=== PATIENT | male | born 1960 | race Caucasian/White ===

== ENCOUNTER 2016-06-12 10:48 | Outpatient (CLI) | payer BC | END 2016-06-12 10:49 | disposition home or self-care (01) | DX: E11.9 Type 2 diabetes mellitus without complications (principal); E78.5 Hyperlipidemia, unspecified; I10 Essential (primary) hypertension; R74.8 Abnormal levels of other serum enzymes ==

== ENCOUNTER 2016-06-19 08:04 | Outpatient (CLI) | payer BC | END 2016-06-19 08:05 | disposition home or self-care (01) | DX: R74.8 Abnormal levels of other serum enzymes (principal) ==

== ENCOUNTER 2016-07-17 15:29 | Outpatient (CLI) | payer BC | END 2016-07-17 15:30 | disposition home or self-care (01) | DX: E78.5 Hyperlipidemia, unspecified (principal); R74.8 Abnormal levels of other serum enzymes ==

== ENCOUNTER 2017-03-19 07:50 | Outpatient (CLI) | payer BC ==
[2017-03-19 10:44] LABS: ALBUMIN/GLOBULIN RATIO 1.4 (1.0-2.2); BILIRUBIN,DIRECT 0.2 mg/dL (0.1-0.5); BILIRUBIN,TOTAL 1.7 mg/dL (0.2-1.0); BUN - BLOOD UREA NITROGEN 18 mg/dL (6-20); CALCIUM 9.4 mg/dL (8.5-10.3); CARBON DIOXIDE - CO2 32 mmol/L (21-32); CHLORIDE 96 mmol/L (101-111); CHOL/HDL RATIO 3.7 (<5.0); CHOLESTEROL 118 mg/dL; CREATININE 0.8 mg/dL (0.6-1.2); GFR - MDRD 100 (>89); GLUCOSE 114 mg/dL (70-100); HDL CHOLESTEROL 32 mg/dL; POTASSIUM 3.7 mmol/L (3.5-5.0); SODIUM 136 mmol/L (135-145); TOTAL PROTEIN 7.8 g/dL (6.7-8.2); TRIGLYCERIDES 110 mg/dL; VLDL CHOLESTEROL 22 mg/dL
[2017-03-19 11:12] LABS: HEMOGLOBIN A1C 0.53 g/dL
== END 2017-03-19 07:51 | disposition home or self-care (01) ==
LOC: LAB.F 07:50
PROVIDERS: ATTEND Family Medicine
DX: E11.9 Type 2 diabetes mellitus without complications (principal); R74.8 Abnormal levels of other serum enzymes; I10 Essential (primary) hypertension; E78.5 Hyperlipidemia, unspecified
CPT/HCPCS: 36415; 80053; 80061; 82043; 82248; 83036

== ENCOUNTER 2017-06-18 08:00 | Outpatient (CLI) | payer BC ==
[2017-06-18 11:40] LABS: HB2 TOTAL 18.5 g/dL; HEMOGLOBIN A1C 0.69 g/dL; HEMOGLOBIN A1C % 5.6 % (4.6-6.2)
== END 2017-06-18 08:01 | disposition home or self-care (01) ==
LOC: LAB.F 08:00
PROVIDERS: ATTEND Family Medicine
DX: E11.9 Type 2 diabetes mellitus without complications (principal); I10 Essential (primary) hypertension; E78.5 Hyperlipidemia, unspecified
CPT/HCPCS: 36415; 83036

== ENCOUNTER 2017-12-23 08:51 | Outpatient (CLI) | payer BC ==
[2017-12-23 17:43] LABS: BASOPHILS # (AUTO) 0.1 10^3/uL (0.0-0.1); BASOPHILS % (AUTO) 0.8 %; EOSINOPHILS # (AUTO) 0.2 10^3/uL (0.0-0.7); EOSINOPHILS % (AUTO) 2.6 %; HGB - HEMOGLOBIN 17.2 g/dL (14.0-18.0); LYMPHOCYTES # (AUTO) 2.6 10^3/uL (1.5-3.5); LYMPHOCYTES % (AUTO) 35.1 %; MEAN CORPUSCULAR HEMOGLOBIN 33.3 pg (27.0-31.0); MEAN CORPUSCULAR HGB CONC 35.8 g/dL (32.0-36.0); MEAN PLATELET VOLUME 8.4 fL (7.4-11.4); MONOCYTES # (AUTO) 0.8 10^3/uL (0.0-1.0); MONOCYTES % (AUTO) 10.8 %; NEUTROPHILS # (AUTO) 3.7 10^3/uL (1.5-6.6); NEUTROPHILS % (AUTO) 50.7 %; PLT - PLATELET COUNT 223 10^3/uL (130-450); RED BLOOD COUNT 5.18 10^6/uL (4.70-6.10); RED CELL DISTRIBUTION WIDTH 13.5 % (12.0-15.0); WHITE BLOOD COUNT 7.3 x10^3/uL (4.8-10.8)
[2017-12-23 18:28] LABS: ALBUMIN 4.9 g/dL (3.2-5.5); ALBUMIN/GLOBULIN RATIO 1.4 (1.0-2.2); ALKALINE PHOSPHATASE 61 IU/L (42-121); ALT ALANINE AMINOTRANSFERASE 42 IU/L (10-60); AST ASPARTATE AMINOTRANSFERASE 28 IU/L (10-42); BILIRUBIN,TOTAL 2.2 mg/dL (0.2-1.0); BUN - BLOOD UREA NITROGEN 16 mg/dL (6-20); CALCIUM 9.7 mg/dL (8.5-10.3); CARBON DIOXIDE - CO2 27 mmol/L (21-32); CHLORIDE 94 mmol/L (101-111); CHOL/HDL RATIO 4.4 (<5.0); CHOLESTEROL 144 mg/dL; CREATININE 0.8 mg/dL (0.6-1.2); GFR - MDRD 99 (>89); GLUCOSE 123 mg/dL (70-100); HDL CHOLESTEROL 33 mg/dL; LDL CHOLESTEROL,CALCULATED 91 mg/dL; LDL/HDL RATIO 2.8 (<3.6); SODIUM 132 mmol/L (135-145); TOTAL PROTEIN 8.4 g/dL (6.7-8.2); VLDL CHOLESTEROL 20 mg/dL
== END 2017-12-23 08:52 | disposition home or self-care (01) ==
LOC: LAB.F 08:51
PROVIDERS: ATTEND Nurse Practitioner Family
DX: Z12.5 Encounter for screening for malignant neoplasm of prostate (principal); E11.9 Type 2 diabetes mellitus without complications; I10 Essential (primary) hypertension; E78.5 Hyperlipidemia, unspecified
CPT/HCPCS: 36415; 80053; 80061; 83721; 84153; 84443; 85025

== ENCOUNTER 2017-12-29 13:54 | Outpatient (CLI) | payer BC ==
[2017-12-29 18:35] LABS: HB2 TOTAL 17.7 g/dL; HEMOGLOBIN A1C 0.54 g/dL; HEMOGLOBIN A1C % 4.9 % (4.6-6.2)
== END 2017-12-29 13:55 | disposition home or self-care (01) ==
LOC: LAB.F 13:54
PROVIDERS: ATTEND Nurse Practitioner Family
DX: E11.9 Type 2 diabetes mellitus without complications (principal)
CPT/HCPCS: 36415; 83036

== ENCOUNTER 2018-08-15 10:02 | Outpatient (CLI) | payer BC ==
[2018-08-15 20:01] LABS: HB2 TOTAL 18.7 g/dL; HEMOGLOBIN A1C 0.56 g/dL; HEMOGLOBIN A1C % 4.9 % (4.6-6.2)
== END 2018-08-15 10:03 | disposition home or self-care (01) ==
LOC: LAB.F 10:02
PROVIDERS: ATTEND Nurse Practitioner Family
DX: E11.9 Type 2 diabetes mellitus without complications (principal)
CPT/HCPCS: 36415; 83036

== ENCOUNTER 2020-04-05 09:17 | Outpatient (CLI) | payer BC ==
[2020-04-05 14:56] LABS: BASOPHILS # (AUTO) 0.1 10^3/uL (0.0-0.1); BASOPHILS % (AUTO) 1.2 %; EOSINOPHILS # (AUTO) 0.5 10^3/uL (0.0-0.7); EOSINOPHILS % (AUTO) 5.2 %; HGB - HEMOGLOBIN 16.7 g/dL (14.0-18.0); LYMPHOCYTES # (AUTO) 2.9 10^3/uL (1.5-3.5); LYMPHOCYTES % (AUTO) 31.5 %; MEAN CORPUSCULAR HEMOGLOBIN 32.2 pg (27.0-31.0); MEAN CORPUSCULAR HGB CONC 34.6 g/dL (32.0-36.0); MEAN CORPUSCULAR VOLUME 93.1 fL (80.0-94.0); MEAN PLATELET VOLUME 10.1 fL (7.4-11.4); MONOCYTES # (AUTO) 0.8 10^3/uL (0.0-1.0); MONOCYTES % (AUTO) 8.5 %; NEUTROPHILS % (AUTO) 53.2 %; PLT - PLATELET COUNT 212 10^3/uL (130-450); RED BLOOD COUNT 5.18 10^6/uL (4.70-6.10); RED CELL DISTRIBUTION WIDTH 12.6 % (12.0-15.0); WHITE BLOOD COUNT 9.3 x10^3/uL (4.8-10.8)
[2020-04-05 15:51] LABS: ALBUMIN 4.8 g/dL (3.2-5.5); ALBUMIN/GLOBULIN RATIO 1.5 (1.0-2.2); ALKALINE PHOSPHATASE 74 IU/L (42-121); ALT ALANINE AMINOTRANSFERASE 49 IU/L (10-60); AST ASPARTATE AMINOTRANSFERASE 27 IU/L (10-42); BILIRUBIN,TOTAL 1.7 mg/dL (0.2-1.0); BUN - BLOOD UREA NITROGEN 12 mg/dL (6-20); CALCIUM 9.7 mg/dL (8.5-10.3); CARBON DIOXIDE - CO2 30 mmol/L (21-32); CHLORIDE 97 mmol/L (101-111); CHOL/HDL RATIO 5.7 (<5.0); CHOLESTEROL 227 mg/dL; CREATININE 0.8 mg/dL (0.6-1.2); GLUCOSE 140 mg/dL (70-100); HDL CHOLESTEROL 40 mg/dL; LDL CHOLESTEROL,CALCULATED 141 mg/dL; LDL/HDL RATIO 3.5 (<3.6); SODIUM 138 mmol/L (135-145); TOTAL PROTEIN 7.9 g/dL (6.7-8.2); VLDL CHOLESTEROL 46 mg/dL
[2020-04-05 16:16] LABS: CREATININE,URINE 59.9 mg/dL
[2020-04-05 16:18] LABS: MICROALBUMIN,URINE < 0.2 mg/dL (0-300.0)
[2020-04-05 19:04] LABS: HEMOGLOBIN A1c% 5.6 % (4.27-6.07)
[2020-04-06 13:41] LABS: HEPATITIS C ANTIBODY NON-REACTIVE (NON-REACTIVE)
--- OUTSIDE RECORDS SUMMARY | 2020-04-10 01:32 | EXTERNAL MEDICAL SUMMARY RPT | Continuity of Care Document ---
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 Unavailable Problems date description facility 2020-04-05 00:00:00 MICROALBUMIN/CREAT RATIO [facility] 2020-04-05 00:00:00 TSH WITH REFLEX TO FT4 [facility] Primary [facility] 2020-04-05 00:00:00 Hep C AB with Reflex [facility] 2020-04-05 00:00:00 COMPREHENSIVE METABOLIC PANEL [facility] Primary [facility] 2020-04-05 00:00:00 LIPIDS SCREEN [facility] 2020-04-05 00:00:00 [facility]:00:00 PSA, SCREENING [facility] 2020-04-05 00:00:00 CBC W/Diff/Plt [facility] 2020-04-05 00:00:00 [id number] - OV, [facility] 2020-04-05 00:00:00 [facility] smoker [facility] 2020-04-05 00:00:00 Feeling down, depressed, or [facility] hopeless? [facility] 2020-04-05 00:00:00 Patient Health Questionnaire 2 Counts include 234 beds at the [facility] Primary Care item (PHQ2) total score [facility] 2020-04-05 09:17 TYPE 2 DIABETES MELLITUS [facility] WITHOUT COMPLICATIONS 2020-04-05 09:17 ENCOUNTER FOR SCREENING FOR [facility] OTHER VIRAL DISEASES Allergies date description facility NO KNOWN ALLERGIES [facility] Medications date description facility 2020-03-07 00:00:00 null [facility] 2020-03-07 00:00:00 null [facility] 2020-03-07 00:00:00 null [facility] 2020-03-07 00:00:00 null [facility] 2020-03-07 00:00:00 ATORVASTATIN CALCIUM [facility] 2020-03-07 00:00:00 SIMVASTATIN [facility] 2020-03-07 00:00:00 ATORVASTATIN CALCIUM [facility] 2020-03-07 00:00:00 SIMVASTATIN [facility] Procedures date description facility 2020-04-05 00:00:00 MICROALBUMIN/CREAT RATIO [facility] date description facility 2020-04-05 00:00:00 [facility] date description facility 2020-04-05 00:00:00 Hep C AB with Reflex [facility] date description facility 2020-04-05 00:00:00 COMPREHENSIVE METABOLIC PANEL [facility] date description facility 2020-04-05 00:00:00 LIPIDS SCREEN [facility] date description facility 2020-04-05 00:00:00 HGBA1C [facility] date description facility 2020-04-05 00:00:00 [facility] date description facility 2020-04-05 00:00:00 CBC W/Diff/Plt [facility] date description facility 2020-04-05 00:00:00 [facility] Results Social History date description facility 2020-04-05 00:00:00 Never smoker [facility] Social History date description facility 2020-04-05 00:00:00 Never smoker [facility] date description facility [phone]
== END 2020-04-05 09:18 | disposition home or self-care (01) ==
LOC: LAB.S 09:17
PROVIDERS: ATTEND Registered Nurse
DX: Z01.84 Encounter for antibody response examination (principal); E11.9 Type 2 diabetes mellitus without complications
CPT/HCPCS: 36415; 80053; 80061; 82043; 82570; 83036; 83721; 84153; 84443; 85025; 86803

== ENCOUNTER 2022-08-16 20:26 | Emergency (ER) | payer BC ==
[2022-08-16] MEDS ORDERED: SODIUM CHLORIDE 0.9% 1,000 ML IV STA (21:10)
[2022-08-16 21:27] LABS: BASOPHILS # (AUTO) 0.1 10^3/uL (0.0-0.1); EOSINOPHILS # (AUTO) 0.2 10^3/uL (0.0-0.7); EOSINOPHILS % (AUTO) 2.8 %; HCT - HEMATOCRIT 50.3 % (42.0-52.0); HGB - HEMOGLOBIN 18.1 g/dL (14.0-18.0); LYMPHOCYTES # (AUTO) 3.5 10^3/uL (1.5-3.5); LYMPHOCYTES % (AUTO) 44.3 %; MEAN CORPUSCULAR HEMOGLOBIN 32.6 pg (27.0-31.0); MEAN CORPUSCULAR VOLUME 90.6 fL (80.0-94.0); MONOCYTES # (AUTO) 0.9 10^3/uL (0.0-1.0); MONOCYTES % (AUTO) 11.1 %; NEUTROPHILS # (AUTO) 3.2 10^3/uL (1.5-6.6); NEUTROPHILS % (AUTO) 40.5 %; PLT - PLATELET COUNT 238 10^3/uL (130-450); RED BLOOD COUNT 5.55 10^6/uL (4.70-6.10); RED CELL DISTRIBUTION WIDTH 12.6 % (12.0-15.0); WHITE BLOOD COUNT 7.9 x10^3/uL (4.8-10.8)
[2022-08-16 21:39] LABS: ALBUMIN 4.9 g/dL (3.2-5.5); ALBUMIN/GLOBULIN RATIO 1.4 (1.0-2.2); BILIRUBIN,TOTAL 1.7 mg/dL (0.2-1.0); CALCIUM 9.4 mg/dL (8.5-10.3); CREATININE 0.8 mg/dL (0.6-1.2); POTASSIUM 2.9 mmol/L (3.5-5.0); TOTAL PROTEIN 8.4 g/dL (6.7-8.2)
--- NOTE | 2022-08-16 22:26 | CT Report ---
PROCEDURE: HEAD WO INDICATIONS: headaches/HTN TECHNIQUE: Noncontrast 4.5 mm thick angled axial sections acquired from the foramen magnum to the vertex. For r adiation dose reduction, the following was used: automated exposure control, adjustment of mA and/or kV according to patient size. COMPARISON: None. FINDINGS: Image quality: Excellent. CSF spaces: Basal cisterns are patent. No extra-axial fluid collections. Ventricles are normal in size and shape. Brain: No intracranial hemorrhage, mass, or mass effect. Stoner-white matter interface appears preser beulah. Skull and face: Calvarium and visualized facial bones are intact, without suspicious lesions. Sinuses: Visualized sinuses and mastoids are clear. IMPRESSION: 1. No acute intracranial abnormality. Reviewed by: Seamus Walton MD on 08/16/2022 10:25 PM PDT Approved by: Seamus Walton MD on 08/16/2022 10:25 PM PDT Station ID: [id number]
[2022-08-16] MEDS ORDERED: POTASSIUM CHLORIDE 20 MEQ TABLET PO STA (22:28)
[2022-08-16] MEDS ORDERED: ACETAMINOPHEN 325 MG TABLET PO STA (23:19)
--- NOTE | 2022-08-16 23:25 | ED Physician Documentation ---
History of Present Illness - Stated complaint Stated Complaint: HEART PX - Chief complaint Chief Complaint: Cardiac - History obtained from History obtained from: Patient - Additonal information Additional information: Patient is a 62-year-old male presenting for evaluation of high blood pressure. Patient states that he previously had a history of hypertension and diabetes but was able to be taken off of medications approximately 1 year ago as his blood pressures had improved and He no longer needed diabetes medications. However for the past several days he has reported intermittent headaches and feeling lightheaded. He has been checking his blood pressure and noticed that it has been more elevated including tonight where it was 216/125 at home.He also reports having numbness and tingling to his face and bilateral arms. He denies changes to his vision, trouble speaking or swallowing, focal weakness in extremities.He does not take a blood thinner.He denies falls or injuries.He denies chest pain or shortness of air. Review of Systems Constitutional: denies: Fever Cardiac: denies: Chest pain / pressure Respiratory: denies: Dyspnea GI: denies: Abdominal Pain Neurologic: reports: Headache. denies: Syncope PD PAST MEDICAL HISTORY - Past Medical History Cardiovascular: Hypertension, High cholesterol Respiratory: None Endocrine/Autoimmune: Type 2 diabetes GI: Colon polyps : Frequency HEENT: None Psych: None Musculoskeletal: None Derm: None - Past Surgical History General: Colonoscopy - Present Medications Home Medications: Ambulatory Orders Medication Instructions Recorded Confirmed Lisinopril/Hydrochlorothiazide 2 tab PO DAILY 08/03/12 12/10/15 [Lisinopril-Hctz 10-12.5 mg Tab] metFORMIN [Glucophage] 500 mg PO QPM 08/03/12 12/10/15 Insulin Glargine [Lantus] 45 - 70 units SQ QPM 11/13/13 12/10/15 Liraglutide [Victoza 2-Hans] 1.8 mg PO DAILY 11/13/13 12/10/15 Multivitamin W/Minerals Liq 1 tab PO DAILY 12/10/15 12/10/15 [Centrum] Niacin [Niacor] 500 mg PO BID 12/10/15 12/10/15 - Allergies Allergies/Adverse Reactions: Allergies Allergy/AdvReac Type Severity Reaction Status Date / Time No Known Drug Allergies Allergy Verified 08/16/22 20:36 PD ED PE NORMAL - General General: Alert and oriented X 3, No acute distress, Well developed/nourished - HEENT HEENT: Atraumatic, PERRL, EOMI, Moist mucous membranes, Pharynx benign - Neck Neck: Supple, no meningeal sign - Cardiac Cardiac: RRR, No murmur, Strong equal pulses - Respiratory Respiratory: No respiratory distress, Clear bilaterally - Abdomen Abdomen: Soft, Non tender, Non distended - Derm Derm: Warm and dry - Extremities Extremities: No edema - Neuro Neuro: Alert and oriented X 3, portal architect 2-12 intact, No motor deficit, No sensory deficit, Normal speech, Other (Normal gait) Results - Vitals Vitals: Vital Signs - 24 hr 08/16/22 08/16/22 08/16/22 20:29 21:34 23:51 Temperature 37.1 C Heart Rate 106 H 78 74 Respiratory 18 19 18 Rate Blood Pressure 167/119 H 102/51 L 151/97 H O2 Saturation 96 94 94 Oxygen O2 Source Room air - EKG (time done) 2111 EKG releavant findings:: EKG personally interpreted by author of this note. Relevant findings are: Rate 82, normal sinus rhythm, PVC, right bundle branch block, no STEMI Rate: Rate (enter#) (82) Rhythm: NSR Intervals: RBBB Ischemia: No: ST elevation c/w ischemia - Labs Labs: Laboratory Tests 08/16/22 08/16/22 21:14 21:14 WBC 7.9 RBC 5.55 Hgb 18.1 H Hct 50.3 MCV 90.6 MCH 32.6 H MCHC 36.0 RDW 12.6 Plt Count 238 MPV 10.0 Neut # (Auto) 3.2 Lymph # (Auto) 3.5 [place] # (Auto) 0.9 Eos # (Auto) 0.2 Baso # (Auto) 0.1 Absolute Nucleated RBC 0.00 Nucleated RBC % 0.0 Sodium 141 Potassium 2.9 L Chloride 97 L Carbon Dioxide 25 Anion Gap 19.0 H BUN 14 Creatinine 0.8 Estimated GFR (MDRD) 98 Glucose 170 H Calcium 9.4 Total Bilirubin 1.7 H AST 27 ALT 52 Alkaline Phosphatase 108 Total Protein 8.4 H Albumin 4.9 Globulin 3.5 Albumin/Globulin Ratio 1.4 PD Medical Decision Making - ED course Complexity details: reviewed results, re-evaluated patient, d/w patient ED course: Patient is a 62-year-old male presenting for evaluation of concerns for high blood pressure.Initial blood pressure reading is elevated. He has no focal deficits noted on exam his NIH is 0.He is ambulatory, well-appearing, nontoxic. He does report having mild headaches over the past several days so a head CT was obtained given reports of elevated blood pressure readings at home to evaluate for intracranial hemorrhage. The CT is negative for a bleed which I also reviewed. Again I do not think his symptoms suggest a stroke.CBC, chemistries were obtained and significant for mild hypokalemia of 2.9. Patient was given IV fluids and p.o. potassium. He is feeling better here. Repeat blood pressure has improved. I did speak with his RN Shakeel about the second blood pressure documented with a systolic of 102 and Shakeel feels that this was likely an error.Patient has been ambulating to the restroom here. At this time I do not feel that he needs reinitiation on antihypertensive but does need close follow-up with his PCP. He does not have symptoms to suggest hypertensive emergency. He denies ever having any episodes of chest pain or shortness of breath to suggest a cardiac etiology or ACS.He and his are counseled on concerning symptoms to return for. Departure - Departure Disposition: 01 Home, Self Care Clinical Impression: Dizziness, Facial numbness, Elevated blood pressure reading, Hypokalemia Condition: Stable Instructions: ED Dizziness [facility] Follow-Up: Arianna Lovell ARNP [Credentialed Staff Provider] - Within 3 Days Comments: Your labs today show that your potassium was slightly low. This could be contributing to your symptoms so we have replaced it and also given you IV fluids for hydration. I would recommend close follow-up with your PCP for recheck of your blood pressure. If you develop any worsening symptoms such as worsening headache, dizziness, chest pain, shortness of breath or any new concerns please return to the emergency department. Your head CT today does not show any acute findings. Discharge Date/Time: 08/16/22 23:52
[2022-08-16 23:53] VITALS: BP 151/97
== END 2022-08-16 23:52 | disposition home or self-care (01) ==
LOC: ED 20:26
DX: I10 Essential (primary) hypertension (principal); R42 Dizziness and giddiness; R20.0 Anesthesia of skin; E87.6 Hypokalemia; E78.00 Pure hypercholesterolemia, unspecified; E11.9 Type 2 diabetes mellitus without complications; Z79.84 Long term (current) use of oral hypoglycemic drugs; Z79.4 Long term (current) use of insulin; Z79.899 Other long term (current) drug therapy
CPT/HCPCS: 36415; 70450; 80053; 85025; 93005; 99284; A9270

== ENCOUNTER 2022-08-19 09:08 | Outpatient (CLI) | payer BC ==
[2022-08-19 15:23] LABS: BILIRUBIN,DIRECT 0.1 mg/dL (0.1-0.5); CALCIUM 9.9 mg/dL (8.5-10.3); CREATININE 0.8 mg/dL (0.6-1.2); POTASSIUM 3.6 mmol/L (3.5-5.0)
[2022-08-19 15:59] LABS: THYROID STIMULATING HORMONE 0.57 uIU/mL (0.34-5.60)
[2022-08-19 20:38] LABS: ESTIMATED AVERAGE GLUCOSE 117 mg/dL (70-100); HEMOGLOBIN A1c% 5.7 % (4.27-6.07)
== END 2022-08-19 09:09 | disposition home or self-care (01) ==
LOC: LAB.S 09:08
PROVIDERS: ATTEND Physician Assistant
DX: I10 Essential (primary) hypertension (principal); E87.6 Hypokalemia; E80.6 Other disorders of bilirubin metabolism; E11.9 Type 2 diabetes mellitus without complications
CPT/HCPCS: 36415; 80048; 82248; 83036; 84443

== ENCOUNTER 2023-04-07 12:39 | Outpatient (CLI) | payer BC ==
[2023-04-07 16:09] LABS: CALCIUM 9.5 mg/dL (8.5-10.3); CREATININE 0.7 mg/dL (0.6-1.3); POTASSIUM 3.4 mmol/L (3.5-4.5)
[2023-04-07 20:54] LABS: ESTIMATED AVERAGE GLUCOSE 128 mg/dL (70-100); HEMOGLOBIN A1c% 6.1 % (4.27-6.07)
== END 2023-04-07 12:40 | disposition home or self-care (01) ==
LOC: LAB.S 12:39
PROVIDERS: ATTEND Registered Nurse
DX: E11.9 Type 2 diabetes mellitus without complications (principal)
CPT/HCPCS: 36415; 80048; 83036

== ENCOUNTER 2023-11-16 11:05 | Outpatient (CLI) | payer BC ==
[2023-11-16 11:28] LABS: BASOPHILS # (AUTO) 0.1 10^3/uL (0.0-0.1); BASOPHILS % (AUTO) 1.1 %; EOSINOPHILS # (AUTO) 0.2 10^3/uL (0.0-0.7); EOSINOPHILS % (AUTO) 3.5 %; HCT - HEMATOCRIT 45.9 % (42.0-52.0); HGB - HEMOGLOBIN 16.2 g/dL (14.0-18.0); LYMPHOCYTES # (AUTO) 2.7 10^3/uL (1.5-3.5); MEAN CORPUSCULAR HEMOGLOBIN 32.2 pg (27.0-31.0); MEAN CORPUSCULAR HGB CONC 35.3 g/dL (32.0-36.0); MEAN CORPUSCULAR VOLUME 91.3 fL (80.0-94.0); MEAN PLATELET VOLUME 9.9 fL (7.4-11.4); MONOCYTES # (AUTO) 0.7 10^3/uL (0.0-1.0); MONOCYTES % (AUTO) 10.6 %; NEUTROPHILS # (AUTO) 2.8 10^3/uL (1.5-6.6); NEUTROPHILS % (AUTO) 42.6 %; PLT - PLATELET COUNT 221 10^3/uL (130-450); RED BLOOD COUNT 5.03 10^6/uL (4.70-6.10); RED CELL DISTRIBUTION WIDTH 12.6 % (12.0-15.0); WHITE BLOOD COUNT 6.5 x10^3/uL (4.8-10.8)
[2023-11-16 11:44] LABS: CREATININE,URINE 153.2 mg/dL; MICROALBUM/CREATININE RATIO,UR 56.1 ug/mg (<30.0); MICROALBUMIN,URINE 8.6 mg/dL
[2023-11-16 11:53] LABS: ALBUMIN 4.5 g/dL (3.2-5.5); ALBUMIN/GLOBULIN RATIO 1.5 (1.0-2.2); ALKALINE PHOSPHATASE 62 IU/L (42-121); ALT ALANINE AMINOTRANSFERASE 51 IU/L (10-60); AST ASPARTATE AMINOTRANSFERASE 24 IU/L (10-42); BUN - BLOOD UREA NITROGEN 9 mg/dL (6-20); CALCIUM 9.6 mg/dL (8.5-10.3); CARBON DIOXIDE - CO2 30 mmol/L (21-32); CHLORIDE 99 mmol/L (101-111); CHOL/HDL RATIO 6.5 (<5.0); CHOLESTEROL 227 mg/dL; CREATININE 0.8 mg/dL (0.6-1.3); GFR - MDRD 97 (>89); GLUCOSE 217 mg/dL (74-104); HDL CHOLESTEROL 35 mg/dL; LDL CHOLESTEROL,CALCULATED 137 mg/dL; LDL/HDL RATIO 3.9 (<3.6); POTASSIUM 3.7 mmol/L (3.5-4.5); SODIUM 137 mmol/L (135-145); TOTAL PROTEIN 7.6 g/dL (6.4-8.9); TRIGLYCERIDES 275 mg/dL; VLDL CHOLESTEROL 55 mg/dL
[2023-11-16 12:20] LABS: THYROID STIMULATING HORMONE 0.39 uIU/mL (0.34-5.60)
[2023-11-16 12:31] LABS: ESTIMATED AVERAGE GLUCOSE 154 mg/dL (70-100)
== END 2023-11-16 11:06 | disposition home or self-care (01) ==
LOC: LAB 11:05
PROVIDERS: ATTEND Registered Nurse
DX: E11.9 Type 2 diabetes mellitus without complications (principal); Z12.5 Encounter for screening for malignant neoplasm of prostate; Z13.228 Encounter for screening for other metabolic disorders; Z13.220 Encounter for screening for lipoid disorders; Z13.29 Encounter for screening for other suspected endocrine disorder; Z13.0 Encounter for screening for diseases of the blood and blood-forming organs and certain disorders involving the immune mechanism
CPT/HCPCS: 36415; 80053; 80061; 82043; 82570; 83036; 83721; 84153; 84443; 85025